=== PATIENT | male | born 2000 | race Two or more races ===

== ENCOUNTER 2024-04-24 19:42 | Emergency (ER) | payer MEDICAID, SELFPAY ==
[2024-04-24 19:43] VITALS: BMI 41.0
[2024-04-24 19:50] VITALS: BP 145/87; PULSE 103; RESP 18; TEMP 36.7; O2SAT 95
--- NOTE | 2024-04-24 19:59 | EDNOTE_ITS ---
ED Skin Abcess FB-RME/HPI General Chief complaint: General Adult/Misc Complain Stated complaint: LEFT INGROWN TOE NAIL Time Seen by Provider: 04/24/24 19:50 Source: patient, RN notes reviewed and old records reviewed Arrival date/time: 04/24/24 19:42 Mode of arrival: ambulatory Limitations: no limitations RME / HPI RME / HPI narrative: 23yom presents to ED for ingrown left great toenail x1 month. Patient states nail has become red, swollen and more painful over the past week; hurts to wear his work boots. No fever or joint pain/swelling reported. No medications or treatments since symptom onset. Related Data Previous Rx's ?Medication ?Instructions ?Recorded ibuprofen 600 mg tablet 600 mg PO Q6H #30 tabs 06/14/23 cephalexin 500 mg capsule 500 mg PO Q6H 10 days #40 caps 04/24/24 ibuprofen 600 mg tablet 600 mg PO Q6H PRN pain #30 tabs 04/24/24 Allergies Allergy/AdvReac Type Severity Reaction Status Date / Time No Known Allergies Allergy Verified 11/13/18 15:20 Review of Systems Review of Systems Systems Reviewed: All systems reviewed, normal except as documented Constitutional Constitutional: Denies fever(s) Integumentary/Breasts Skin/Breast: Reports erythema Comments: Reports nail changes Past Medical History Past Medical History GASTROINTESTINAL: Positive Obesity Surgical History OTHER SURGICAL HX: Denies past surgical history ED Exam General Limitations: Present no limitations General appearance: Present alert, in no apparent distress and obese Head Head exam: Present atraumatic and normocephalic Eye Eye exam: Present normal appearance, PERRL and EOMI ENT ENT exam: Present normal exam and mucous membranes moist Neck Neck exam: Present normal inspection and full ROM Chest Chest inspection: Present normal inspection and symmetric chest wall rise Respiratory Respiratory exam: Present normal lung sounds bilaterally; Absent respiratory distress Cardiovascular Cardiovascular exam: Present regular rate and normal rhythm Extremities Exam Extremities exam: Present normal inspection and full ROM; Absent joint swelling Neurological Exam Neurological exam: Present alert and oriented X3 Psychiatric Psychiatric exam: Present normal affect and normal mood Skin Skin exam: Present other (Tenderness, erythema, swelling to nail folds surrounding left great toenail. Nail is also thickened. No evidence of abscess) Course Quality Measures none Vital Signs Vital signs: Vital Signs Temperature 98.1 F 04/24/24 19:50 Pulse Rate 103 H 04/24/24 19:50 Respiratory Rate 18 04/24/24 19:50 Blood Pressure 145/87 H 04/24/24 19:50 Pulse Oximetry (%) 95 04/24/24 19:50 Oxygen Delivery Method Room Air 04/24/24 19:50 Skin / Abscess / Foreign Body MDM Narrative MDM Narrative:: 23yom presents to ED for ingrown left great toenail x1 month. Patient states nail has become red, swollen and more painful over the past week; hurts to wear his work boots. No fever or joint pain/swelling reported. No medications or treatments since symptom onset. Will treat for infection. Based on patient hx of toe abscess requiring admission and surgical I&D, will refer to podiatry for further eval and mgmt. Encouraged warm water soaks, motrin/tylenol prn pain. Stable for dc, RTED precautions given. Patient data External records reviewed:: [facility] previous records (11/09/2018-11/14/2018 admission for abscess left toe) Clinical information provided by:: patient Social determinants that could affect healthcare access:: other (specify) (Poor access to healthcare) Patient has the following chronic illnesses:: Obesity How is presenting disease/condition affected by chronic disease/condition?: exacerbated by Evaluation data The following diagnostics were reviewed and interpreted by me:: other (specify) (none) Lab and/or radiology exams considered but not ordered:: toe xrays: no hx of trauma/injury Interpretation Summary: na Medications / Prescriptions Medications or Prescriptions considered but not ordered:: none Medication administrations:: na Consultations Consultation(s) initiated? (list below): No Diagnosis Skin/Abscess Differential Diagnosis: other (cellulitis, abscess, paronychia, ingrown nail, onychomycosis, nail avulsion) Most likely diagnosis given after review of the tests above:: ingrown nail with infection Admission Indicated Admission indicated?: not indicated Admission Request Was there a request for admission?: No Disposition Plan Disposition Plan: Discharge Discharge Attestation Discharge Attestation: The patient and all family members were given an opportunity to ask questions and understood the discharge instructions. Discharge instructions specifically effects, indications for sooner follow up or return to the emergency department, and the expected course of current diagnosis. Patient condition: Stable Discharge Plan Plan Patient Disposition: HOME (Self Care) Patient condition on transfer: Stable Prescriptions/Referrals Prescriptions/Med Rec: New ibuprofen 600 mg tablet 600 mg PO Q6H PRN (Reason: pain) Qty: 30 0RF cephalexin 500 mg capsule 500 mg PO Q6H 10 Days Qty: 40 0RF No Action ibuprofen 600 mg tablet 600 mg PO Q6H Qty: 30 0RF Referrals: Jasson Maria DPM [Physician] - In 1 week (Call to schedule an appointment for visit) Temporary Provider,ED [Physician] - In 1 week Problem List Clinical Impression: Ingrown toenail of left foot with infection Patient/Caregiver Discharge Instructions Education Materials: ED Toenail Ingrown Infec Abx Onl Print Language: Peruvian Stand Alone Forms: Cassie Award Info., Patient Portal Info Letter PA/[employer] Supervising Physician KATELYN/[employer] Supervising Physician: Ethel
== END 2024-04-24 20:09 | disposition home or self-care (01) ==
LOC: SERX 20:14
PROVIDERS: Emergency Provider Emergency Medicine; PCP Family Medicine
DX: L60.0 Ingrowing nail (principal); L03.032 Cellulitis of left toe
CPT/HCPCS: 99281

== ENCOUNTER 2025-01-23 11:47 | Emergency (ER) | payer MEDICAID, SELFPAY ==
--- NOTE | 2025-01-23 11:53 | EDNOTE_ITS ---
ED General RME/HPI General Chief complaint: Ankle/Foot Injury Stated complaint: SWOLLEN L) TOENAIL GREAT TOE Time Seen by Provider: 01/23/25 11:51 Arrival date/time: 01/23/25 11:47 RME / HPI RME / HPI narrative: 24-year-old male presents to the ER complaining of left great toe increased pain and swelling as of last night however has been present for the past 2 weeks. Denies fever, nausea vomiting, drug use. Related Data Previous Rx's ?Medication ?Instructions ?Recorded ibuprofen 600 mg tablet 600 mg PO Q6H #30 tabs 06/13 ibuprofen 600 mg tablet 600 mg PO Q6H PRN pain #30 t abs 04/24/24 cephalexin 500 mg capsule 500 mg PO QID 7 days #28 cap s 01/23/25 Allergies Allergy/AdvReac Type Severity Reaction Status Date / Time No Known Allergies Allergy Verified 01/23/25 11:50 Review of Systems Review of Systems Systems Reviewed: All systems reviewed, normal except as documented Past Medical History Past Medical History NEUROLOGIC: Negative Neurological Disorders or Seizures CARDIAC: Negative Cardiac Disorders or Congestive Heart Failure RESPIRATORY: Negative Chronic Obstructive Pulmonary Disease (COPD) GASTROINTESTINAL: Positive Obesity; Negative Gastrointestinal Disorders GENITOURINARY: Negative Genitourinary Disorders or Renal Disease MUSCULOSKELETAL: Negative Musculoskeletal Disorders ENDOCRINE: Negative Endocrine Disorders, Diabetes Mellitus Type 1 or Diabetes Mellitus Type 2 HEMATOLOGIC: Negative Blood Disorders OTHER HISTORY: Negative Blood Transfusions or Anesthesia Reactions Family History FAMILY HISTORY: Negative Family Neurologic Problems Social History SMOKING STATUS: Never smoker ED Exam Narrative Physical exam: Constitutional: Vital Signs Reviewed. Well appearing. No acute distress. Not toxic appearing. Head: Normocephalic, atraumatic. Eyes: Conjunctiva clear. ENT: Mucous membranes moist. Neck: Trachea midline. Normal range of motion. No nuchal rigidity. Respiratory: Normal effort. No respiratory distress or accessory muscle use. Neuro: Alert and oriented. Speech normal. No focal gross motor or sensory deficits observed. Skin: Warm, dry, normal color. Extremity: Left first digit with erythema, tenderness, fluctuance along the medial nail fold along with granulation tissue. MTP and IP joint with full ran ge of motion, strength 5 out of 5, sensation tact light touch. Cap refill less than 2 seconds. Psych: Pleasant. Normal affect. Cooperative. Course Course Course Narrative: MDM This patient?s soft tissue infection appears appropriate for outpatient management with close follow-up by a clinician within 24?48 hours. There are no signs of systemic toxicity, and a serious, rapidly progressive infection is unlikely based on presentation and exam. Doubt necrotizing fasciitis given lack of tenderness beyond erythema or crepitus, and doubt lymphangitis given lack of streaking. Incision and drainage was performed as indicated in the central most region of fluctuance of paronychia and partial matrixectomy performed as well. Antibiotics have been initiated, and response will be assessed at follow-up. The patient has been instructed on signs of acute progression and to return immediately if symptoms worsen or change. Quality Measures none Orders Category Date Time Status Incision & Drainage set up ONCE Care 01/23/25 12:25 Active Lidocaine 1% 20 ml [Xylocaine 1% 20 ML] Med 01/23/25 12:25 Discontinued 20 ml INFL X1 ONE Vital Signs Vital signs: Vital Signs Temperature 98.1 F 01/23/25 12:30 Pulse Rate 96 01/23/25 12:30 Respiratory Rate 19 01/23/25 12:30 Blood Pressure 131/78 H 01/23/25 12:30 Pulse Oximetry (%) 95 01/23/25 12:30 Oxygen Delivery Method Room Air 01/23/25 12:30 PROCEDURES: Procedure Comment Additionally performed a partial matrixectomy of the ingrown toenail. It was prepped in a sterile fashion and patient tolerated procedure well without complication. Abscess I/D Site: foot Side (if applicable): left Local Anesthetic: lidocaine 1% Amount of anesthesia used (mL): 5 Technique: incised with #11 blade Amount of fluid expressed (mL): 1 Irrigation: No Packing used?: none Discharge Plan Plan Patient Disposition: HOME (Self Care) Patient condition on transfer: Stable Prescriptions/Referrals Prescriptions/Med Rec: New cephalexin 500 mg capsule 500 mg PO QID 7 Days Qty: 28 0RF No Action ibuprofen 600 mg tablet 600 mg PO Q6H Qty: 30 0RF ibuprofen 600 mg tablet 600 mg PO Q6H PRN (Reason: pain) Qty: 30 0RF Referrals: Ruiz Black MD [Primary Care Provider, Family Practice] - In 1 week Problem List Clinical Impression: Ingrown nail, Paronychia due to ingrown nail Patient/Caregiver Discharge Instructions Education Materials: ED Ingrown Toenail, Excised Additional Instructions: Follow up with your primary medical doctor and a instrument engineer within 48 hours. Return to the Emergency Room immediately for any new, worsening, continuing symptoms or any concerns at all. Return to the Emergency Room within 48 hours if you are unable to follow up with your primary medical doctor and a instrument engineer within 48 hours. Print Language: Danish Stand Alone Forms: Cassie Award Info., Patient Portal Info Letter MDM Clinical Information Provided by: patient Medical Records reviewed [facility] Medication Administration(s) Medication Administration History Discontinued Medications Lidocaine HCl (Lidocaine Hcl 1% 20 Ml Vial) 20 ml INFL X1 ONE Stop: 01/23/25 12:26 Last Admin: 01/23/25 12:47 Dose: 20 ml Documented By: JOE Comments: USED BY PROVIDER
[2025-01-23 12:30] VITALS: BP 131/78; PULSE 96; RESP 19; TEMP 36.7; O2SAT 95; BMI 47.1
[2025-01-23] MEDS: LIDOCAINE HCL 1% 20 ML VIAL INFL (12:47)
--- NOTE | 2025-01-23 17:22 | PC.NURSE ---
WOUND CARE DONE, DRESSING WITH BACITRACIN ON WOULD, POST OP SHOE APPLIED, NO C/O PAIN OR DISCOMFORT. PT TOLERATED WELL
== END 2025-01-23 17:24 | disposition home or self-care (01) ==
PROVIDERS: Emergency Provider Family Medicine; PCP Family Medicine
DX: L60.0 Ingrowing nail (principal); L03.032 Cellulitis of left toe
CPT/HCPCS: 11750; 10060; 99284; J3490